=== PATIENT | male | born 1965 | race Caucasian/White ===

== ENCOUNTER 2017-09-06 07:27 | Day surgery (SDC) | payer OTHER ==
[~2017-09-06] VITALS: Ht 172.7 cm; Wt 88.5 kg
[~2017-09-06 07:27] MED LIST: ATARAX,VISTARIL25 MG PO; CITALOPRAM HBR40 MG PO; CLARITIN,ALAVAR10 MG PO; CLOTRIMAZOLE-BE15 GM TP; CYMBALTA30 MG PO; HYDROCODON-ACE1 EAC5 PO; HYDROCODON-ACE1 EAC8 PO; INCRUSE ELLI62.5 MCG IH; LO-DOSE ASPIRIN81 M1 PO; LOPRESSOR100 M1 PO; LOPRESSOR50 MG PO; LORAZEPAM1 MG PO; LORTAB 10-3251 EACH PO; MEN'S MULTI-VI1 EACH PO; METOPROLOL TAR100 MG PO; NEURONTIN600 MG PO; NEURONTIN800 MG PO; TRAMADOL HCL50 MG PO; ULTRAM50 MG PO; VENTOLIN HFA18 GM IH; ZANAFLEX2 M1 PO; ZANTAC150 MG PO; ZESTRIL20 MG PO; ZOLOFT100 MG PO
== END 2017-09-06 09:34 | disposition home or self-care (01) ==
LOC: PAIN 07:27 → SDC 08:00 → PAIN 08:00
DX: M50.13 Cervical disc disorder with radiculopathy, cervicothoracic region (principal); M47.22 Other spondylosis with radiculopathy, cervical region; J44.9 Chronic obstructive pulmonary disease, unspecified; M48.02 Spinal stenosis, cervical region; I10 Essential (primary) hypertension; M79.1 Myalgia; M54.5 Low back pain; G89.29 Other chronic pain; M25.511 Pain in right shoulder; Z79.891 Long term (current) use of opiate analgesic
CPT/HCPCS: J1100; J1885; J2250; J3010

== ENCOUNTER 2017-09-14 14:47 | Emergency (ER) | payer OTHER ==
[~2017-09-14] VITALS: Ht 175.3 cm; Wt 89.3 kg
[2017-09-14] MEDS ORDERED: SKELAXIN800 MG PO (20:22)
[2017-09-14 20:28] VITALS: BP 117/90
== END 2017-09-14 20:29 | disposition home or self-care (01) ==
LOC: EME 14:47
DX: M54.12 Radiculopathy, cervical region (principal); M54.2 Cervicalgia; F17.200 Nicotine dependence, unspecified, uncomplicated; Z88.5 Allergy status to narcotic agent
CPT/HCPCS: 72156; 99281; 99284; J2060; J2270

== ENCOUNTER 2017-09-21 11:17 | Emergency (ER) | payer OTHER ==
[~2017-09-21] VITALS: Ht 172.7 cm; Wt 86.1 kg
[~2017-09-21 11:17] MED LIST changes: +SKELAXIN800 MG PO
[2017-09-21] MEDS ORDERED: MOTRIN600 MG PO (12:53)
[2017-09-21 13:05] VITALS: BP 134/98
== END 2017-09-21 13:06 | disposition home or self-care (01) ==
LOC: EME 11:17
DX: M77.9 Enthesopathy, unspecified (principal); M25.532 Pain in left wrist; M79.642 Pain in left hand; J44.9 Chronic obstructive pulmonary disease, unspecified; I10 Essential (primary) hypertension; F17.200 Nicotine dependence, unspecified, uncomplicated; F32.9 Major depressive disorder, single episode, unspecified; K21.9 Gastro-esophageal reflux disease without esophagitis; F41.9 Anxiety disorder, unspecified; R56.9 Unspecified convulsions; Z79.82 Long term (current) use of aspirin; Z88.5 Allergy status to narcotic agent
CPT/HCPCS: 73110; 73130; 99281; 99284

== ENCOUNTER 2017-09-29 15:52 | Emergency (ER) | payer OTHER ==
[~2017-09-29] VITALS: Ht 172.7 cm; Wt 86.4 kg
[~2017-09-29 15:52] MED LIST changes: +MOTRIN600 MG PO
[2017-09-29 17:43] VITALS: BP 136/95
== END 2017-09-29 17:50 | disposition home or self-care (01) ==
LOC: EME 15:52
DX: M54.12 Radiculopathy, cervical region (principal); J44.9 Chronic obstructive pulmonary disease, unspecified; I10 Essential (primary) hypertension; K21.9 Gastro-esophageal reflux disease without esophagitis; R56.9 Unspecified convulsions; F32.9 Major depressive disorder, single episode, unspecified; F41.0 Panic disorder [episodic paroxysmal anxiety]; F17.200 Nicotine dependence, unspecified, uncomplicated; Z79.82 Long term (current) use of aspirin; Z88.6 Allergy status to analgesic agent
CPT/HCPCS: 99281; 99284; J1100; J1885; J2270; J2405

== ENCOUNTER 2017-10-01 14:33 | Emergency (ER) | payer OTHER ==
[~2017-10-01] VITALS: Ht 170.2 cm; Wt 95.9 kg
[2017-10-01 16:30] VITALS: BP 135/94
== END 2017-10-01 16:31 | disposition home or self-care (01) ==
LOC: EME 14:33
DX: M54.12 Radiculopathy, cervical region (principal); J44.9 Chronic obstructive pulmonary disease, unspecified; I10 Essential (primary) hypertension; F32.9 Major depressive disorder, single episode, unspecified; K21.9 Gastro-esophageal reflux disease without esophagitis; F41.9 Anxiety disorder, unspecified; R56.9 Unspecified convulsions; F17.200 Nicotine dependence, unspecified, uncomplicated; Z79.82 Long term (current) use of aspirin; Z88.5 Allergy status to narcotic agent
CPT/HCPCS: 99281; 99284; J1885; J2270

== ENCOUNTER 2017-10-29 14:11 | Emergency (ER) | payer OTHER ==
[~2017-10-29] VITALS: Ht 175.3 cm; Wt 91.8 kg
[2017-10-29] MEDS ORDERED: MORPHINE SULFAT15 MG PO (14:45)
[2017-10-29 16:28] VITALS: BP 140/67
== END 2017-10-29 16:29 | disposition home or self-care (01) ==
LOC: EME 14:11
DX: M54.9 Dorsalgia, unspecified (principal); M54.2 Cervicalgia; K21.9 Gastro-esophageal reflux disease without esophagitis; I10 Essential (primary) hypertension; J44.9 Chronic obstructive pulmonary disease, unspecified; F32.9 Major depressive disorder, single episode, unspecified; F41.9 Anxiety disorder, unspecified; F17.200 Nicotine dependence, unspecified, uncomplicated; Z87.442 Personal history of urinary calculi; Z79.82 Long term (current) use of aspirin; Z88.5 Allergy status to narcotic agent; Z88.8 Allergy status to other drugs, medicaments and biological substances
CPT/HCPCS: 99281; 99285; J1885; J2270; J7030

== ENCOUNTER 2017-11-03 18:54 | Emergency (ER) | payer OTHER ==
[~2017-11-03] VITALS: Ht 175.3 cm; Wt 86.3 kg
[~2017-11-03 18:54] MED LIST changes: +MORPHINE SULFAT15 MG PO
[2017-11-03 19:03] VITALS: BP 137/87
== END 2017-11-03 20:47 | disposition left against medical advice (07) ==
LOC: EME 18:54
DX: M54.2 Cervicalgia (principal); Z53.21 Procedure and treatment not carried out due to patient leaving prior to being seen by health care provider

== ENCOUNTER 2017-11-07 22:17 | Emergency (ER) | payer OTHER ==
[~2017-11-07] VITALS: Ht 175.3 cm; Wt 86.9 kg
[2017-11-07] MEDS ORDERED: MEDROL DOSEPAK4 MG PO (23:42)
[2017-11-08 00:26] VITALS: BP 120/70
[2017-11-09] MEDS ORDERED: VICOPROFEN1 TABLET PO (16:20)
[2017-11-09] MEDS ORDERED: FLEXERIL5 MG PO (16:21)
[2017-11-09] MEDS ORDERED: VOLTAREN 1% GE100 GM TP (16:22)
[2017-11-09] MEDS ORDERED: BUSPAR15 MG PO (16:22)
[2017-11-09] MEDS ORDERED: OMEPRAZOLE40 M1 PO (16:23)
== END 2017-11-08 00:28 | disposition home or self-care (01) ==
LOC: EME 22:17
DX: M54.9 Dorsalgia, unspecified (principal); M54.2 Cervicalgia; G89.29 Other chronic pain; F17.200 Nicotine dependence, unspecified, uncomplicated; Z88.5 Allergy status to narcotic agent
CPT/HCPCS: 99281; 99283; J1100; J2270

== ENCOUNTER 2017-11-09 12:47 | Observation (INO) | payer OTHER ==
[~2017-11-09] VITALS: Ht 170.2 cm; Wt 89.3 kg
[~2017-11-09 12:47] MED LIST changes: +MEDROL DOSEPAK4 MG PO
[2017-11-09 13:05] LABS: BASOPHIL (%) 0.3 % (0-1); BASOPHIL COUNT 0.1 K/uL (0-0.1); EOSINOPHIL (%) 0.1 % (0-5); HEMATOCRIT 43.3 % (38.0-50.0); HEMOGLOBIN 14.8 G/DL (12.5-16.6); IMMATURE GRANULOCYTE (%) 1.4 % (0.0-0.7); LYMPHOCYTE (%) 9.2 % (15-42); LYMPHOCYTE COUNT 1.8 K/uL (1.0-2.8); MCH 30.6 PG (29.0-34.0); MCHC 34.2 G/DL (30.0-36.0); MCV 89.5 FL (86-99); MONOCYTE (%) 8.7 % (3-12); MONOCYTE COUNT 1.7 K/uL (0-0.8); NEUTROPHIL (%) 80.3 % (45-76); NEUTROPHIL COUNT 15.4 K/uL (1.8-6.4); PLATELET COUNT 255 K/uL (156-360); RBC DIS.WIDTH-CV 13.5 % (11.8-14.6); RBC DIS.WIDTH-SD 44.2 % (39-53); RED BLOOD COUNT 4.84 M/uL (4.00-5.50); WHITE BLOOD COUNT 19.1 K/uL (4.1-10.2)
[2017-11-09 13:19] LABS: ALBUMIN 4.6 g/dL (3.2-4.8); CHLORIDE 110 mEq/L (99-109); SODIUM 144 mEq/L (136-147)
[2017-11-09 13:20] LABS: MAGNESIUM 2.2 mg/dL (1.3-2.7)
[2017-11-09 13:22] LABS: GLUCOSE 117 mg/dL (70-99); TOTAL PROTEIN 7.4 g/dL (6.4-8.3)
[2017-11-09 13:24] LABS: TOTAL BILIRUBIN 0.2 mg/dL (0.0-1.0)
[2017-11-09 13:25] LABS: ALKALINE PHOSPHATASE 73 IU/L (3-129); SERUM ETHYL ALCOHOL 168 mg/dL
[2017-11-09 13:26] LABS: CREATININE 0.8 mg/dL (0.6-1.3); GFR ESTIMATE (CALCULATED) > 59 mL/min/ (58.99-99999)
[2017-11-09 13:27] LABS: AST (GOT) 30 IU/L (2-34); UREA NITROGEN (BUN) 11 mg/dL (9-23)
[2017-11-09 13:28] LABS: TROP-I INTERPRETATION NEGATIVE; TROPONIN-I < 0.01 ng/mL (0.0-0.30)
[2017-11-09 13:29] LABS: ALT (GPT) 41 IU/L (3-49)
[2017-11-09] MEDS ORDERED: VICOPROFEN1 TABLET PO (16:20)
[2017-11-09] MEDS ORDERED: FLEXERIL5 MG PO (16:21)
[2017-11-09] MEDS ORDERED: BUSPAR15 MG PO (16:22)
[2017-11-09] MEDS ORDERED: VOLTAREN 1% GE100 GM TP (16:22)
[2017-11-09] MEDS ORDERED: OMEPRAZOLE40 M1 PO (16:23)
[2017-11-09 19:04] VITALS: BP 155/104
[2017-11-09 20:14] VITALS: BP 150/87
[2017-11-09 23:07] VITALS: BP 157/93
[2017-11-10 04:00] VITALS: BP 158/107
[2017-11-10 06:05] LABS: HEMATOCRIT 40.2 % (38.0-50.0); HEMOGLOBIN 13.6 G/DL (12.5-16.6); MCH 30.7 PG (29.0-34.0); MCHC 33.8 G/DL (30.0-36.0); MCV 90.7 FL (86-99); PLATELET COUNT 194 K/uL (156-360); RBC DIS.WIDTH-CV 13.5 % (11.8-14.6); RBC DIS.WIDTH-SD 45.3 % (39-53); RED BLOOD COUNT 4.43 M/uL (4.00-5.50); WHITE BLOOD COUNT 10.8 K/uL (4.1-10.2)
[2017-11-10 06:23] LABS: CHLORIDE 106 MEQ/L (99-109); CREATININE 0.8 MG/DL (0.6-1.3); GFR ESTIMATE (CALCULATED) > 59 mL/min/ (58.99-99999); GLUCOSE 98 mg/dL (70-99); POTASSIUM 3.8 MEQ/L (3.7-5.4); SODIUM 140 MEQ/L (136-147); UREA NITROGEN (BUN) 15 mg/dL (9-23)
[2017-11-10 07:55] VITALS: BP 148/100
[2017-11-10 11:58] VITALS: BP 117/57
[2017-11-10 15:42] VITALS: BP 148/93
[2017-11-10] MEDS ORDERED: CHLORDIAZEPOXID25 MG PO (15:45)
[2017-11-10] MEDS ORDERED: OXYCODONE HCL10 MG PO (15:45)
[2017-11-10 19:15] VITALS: BP 132/84
[2017-11-10 20:00] VITALS: BP 139/87
== END 2017-11-10 20:03 | disposition home or self-care (01) ==
LOC: EME 12:47 → 5WEST 16:15 → EDOF 16:15 → ENRESERV 16:17 → 5WEST 17:43
PROVIDERS: Emergency Medicine; Internal Medicine
DX: G40.909 Epilepsy, unspecified, not intractable, without status epilepticus (principal); F10.239 Alcohol dependence with withdrawal, unspecified; M50.20 Other cervical disc displacement, unspecified cervical region; F32.9 Major depressive disorder, single episode, unspecified; F41.0 Panic disorder [episodic paroxysmal anxiety]; J43.9 Emphysema, unspecified; I10 Essential (primary) hypertension; K21.9 Gastro-esophageal reflux disease without esophagitis; Z96.643 Presence of artificial hip joint, bilateral; Z98.1 Arthrodesis status; Z87.820 Personal history of traumatic brain injury; F17.210 Nicotine dependence, cigarettes, uncomplicated; Y90.6 Blood alcohol level of 120-199 mg/100 ml; G89.29 Other chronic pain; F11.20 Opioid dependence, uncomplicated; Z82.49 Family history of ischemic heart disease and other diseases of the circulatory system
CPT/HCPCS: 70450; 80048; 80053; 81003; 83735; 84484; 85025; 85027; 93005; G0378; G0480; J1650; J1885; J2060; J2270; J3010; J7030

== ENCOUNTER 2017-12-01 12:24 | Emergency (ER) | payer OTHER ==
[~2017-12-01] VITALS: Ht 170.2 cm; Wt 86.3 kg
[~2017-12-01 12:24] MED LIST changes: +BUSPAR15 MG PO; +CHLORDIAZEPOXID25 MG PO; +FLEXERIL5 MG PO; +OMEPRAZOLE40 M1 PO; +OXYCODONE HCL10 MG PO; +VICOPROFEN1 TABLET PO; +VOLTAREN 1% GE100 GM TP
[2017-12-01 13:20] LABS: BASOPHIL (%) 0.8 % (0-1); BASOPHIL COUNT 0.1 K/uL (0-0.1); EOSINOPHIL (%) 0.7 % (0-5); EOSINOPHIL COUNT 0.1 K/uL (0-0.3); HEMOGLOBIN 16.6 G/DL (12.5-16.6); IMMATURE GRANULOCYTE (%) 2.9 % (0.0-0.7); LYMPHOCYTE (%) 23.9 % (15-42); LYMPHOCYTE COUNT 2.6 K/uL (1.0-2.8); MCH 31.3 PG (29.0-34.0); MCHC 33.9 G/DL (30.0-36.0); MCV 92.3 FL (86-99); MONOCYTE (%) 9.1 % (3-12); NEUTROPHIL (%) 62.6 % (45-76); NEUTROPHIL COUNT 6.7 K/uL (1.8-6.4); PLATELET COUNT 321 K/uL (156-360); RBC DIS.WIDTH-CV 14.6 % (11.8-14.6); RBC DIS.WIDTH-SD 49.7 % (39-53); RED BLOOD COUNT 5.31 M/uL (4.00-5.50); WHITE BLOOD COUNT 10.8 K/uL (4.1-10.2)
[2017-12-01 13:27] LABS: CHLORIDE 106 mEq/L (99-109); SODIUM 138 mEq/L (136-147)
[2017-12-01 13:29] LABS: GLUCOSE 109 mg/dL (70-99)
[2017-12-01 13:32] LABS: SERUM ETHYL ALCOHOL 170 mg/dL
[2017-12-01 13:33] LABS: CREATININE 0.8 mg/dL (0.6-1.3); GFR ESTIMATE (CALCULATED) > 59 mL/min/ (58.99-99999)
[2017-12-01 13:34] LABS: UREA NITROGEN (BUN) 9 mg/dL (9-23)
[2017-12-01 15:15] VITALS: BP 133/92
[2017-12-01] MEDS ORDERED: FLEXERIL10 MG PO (15:35)
[2017-12-01] MEDS ORDERED: PERCOCET 5/31 TABLET PO (16:05)
== END 2017-12-01 16:46 | disposition home or self-care (01) ==
LOC: EME 12:24
PROVIDERS: Emergency Medicine
DX: G89.18 Other acute postprocedural pain (principal); F10.20 Alcohol dependence, uncomplicated; Y90.6 Blood alcohol level of 120-199 mg/100 ml; M79.1 Myalgia; M54.2 Cervicalgia; Z98.1 Arthrodesis status; R56.9 Unspecified convulsions; F17.200 Nicotine dependence, unspecified, uncomplicated; I10 Essential (primary) hypertension; J44.9 Chronic obstructive pulmonary disease, unspecified; F32.9 Major depressive disorder, single episode, unspecified; F41.0 Panic disorder [episodic paroxysmal anxiety]; K21.9 Gastro-esophageal reflux disease without esophagitis; Z88.5 Allergy status to narcotic agent
CPT/HCPCS: 80048; 85025; 99281; 99284; G0480; J2250

== ENCOUNTER 2018-01-05 15:00 | Emergency (ER) | payer OTHER ==
[~2018-01-05] VITALS: Ht 172.7 cm; Wt 83.3 kg
[~2018-01-05 15:00] MED LIST changes: +FLEXERIL10 MG PO; +PERCOCET 5/31 TABLET PO
[2018-01-05 18:41] VITALS: BP 130/95
== END 2018-01-05 18:41 | disposition home or self-care (01) ==
LOC: EME 15:00
DX: S62.521A Displaced fracture of distal phalanx of right thumb, initial encounter for closed fracture (principal); W23.0XXA Caught, crushed, jammed, or pinched between moving objects, initial encounter; F17.200 Nicotine dependence, unspecified, uncomplicated; Z98.1 Arthrodesis status; Z88.5 Allergy status to narcotic agent; Z88.6 Allergy status to analgesic agent
CPT/HCPCS: 73130; 99281; 99284

== ENCOUNTER 2018-02-06 12:57 | Emergency (ER) | payer OTHER ==
[~2018-02-06] VITALS: Ht 170.2 cm; Wt 85.3 kg
[2018-02-06 13:34] LABS: HEMATOCRIT 45.1 % (38.0-50.0); HEMOGLOBIN 16.3 G/DL (12.5-16.6); MCH 32.1 PG (29.0-34.0); MCHC 36.1 G/DL (30.0-36.0); PLATELET COUNT 260 K/uL (156-360); RBC DIS.WIDTH-CV 13.2 % (11.8-14.6); RED BLOOD COUNT 5.07 M/uL (4.00-5.50)
[2018-02-06 13:43] LABS: CHLORIDE 109 mEq/L (99-109); POTASSIUM 3.9 mEq/L (3.7-5.4); SODIUM 143 mEq/L (136-147)
[2018-02-06 13:45] LABS: GLUCOSE 88 mg/dL (70-99)
[2018-02-06 13:49] LABS: CREATININE 0.7 mg/dL (0.6-1.3); GFR ESTIMATE (CALCULATED) > 59 mL/min/ (58.99-99999)
[2018-02-06 13:50] LABS: UREA NITROGEN (BUN) 7 mg/dL (9-23)
[2018-02-06 13:56] LABS: TROP-I INTERPRETATION NEGATIVE; TROPONIN-I < 0.01 ng/mL (0.0-0.30)
[2018-02-06] MEDS ORDERED: PREDNISONE20 MG PO (14:02)
[2018-02-06] MEDS ORDERED: PERCOCET 5/31 TABLET PO (14:05)
[2018-02-06 17:38] VITALS: BP 145/102
== END 2018-02-06 17:40 | disposition home or self-care (01) ==
LOC: EME 12:57
PROVIDERS: Emergency Medicine Emergency Medical Services
DX: M54.12 Radiculopathy, cervical region (principal); M54.14 Radiculopathy, thoracic region; R07.9 Chest pain, unspecified; E86.0 Dehydration; F10.10 Alcohol abuse, uncomplicated; F11.23 Opioid dependence with withdrawal; R00.0 Tachycardia, unspecified; J44.9 Chronic obstructive pulmonary disease, unspecified; K21.9 Gastro-esophageal reflux disease without esophagitis; I10 Essential (primary) hypertension; F32.9 Major depressive disorder, single episode, unspecified; F41.9 Anxiety disorder, unspecified; F17.200 Nicotine dependence, unspecified, uncomplicated; Z98.1 Arthrodesis status; Z87.442 Personal history of urinary calculi; Z88.5 Allergy status to narcotic agent; Z88.8 Allergy status to other drugs, medicaments and biological substances
CPT/HCPCS: 71045; 80048; 84484; 85027; 93005; 99281; 99285; J3010; J7030; J7040; J7512

== ENCOUNTER 2018-02-23 02:57 | Observation (INO) | payer OTHER ==
[~2018-02-23] VITALS: Ht 170.2 cm; Wt 85.4 kg
[~2018-02-23 02:57] MED LIST changes: -CYMBALTA30 MG PO; +CYMBALTA60 MG PO; +PREDNISONE20 MG PO
[2018-02-23 03:30] LABS: HEMATOCRIT 44.7 % (38.0-50.0); HEMOGLOBIN 15.9 G/DL (12.5-16.6); MCH 31.9 PG (29.0-34.0); MCHC 35.6 G/DL (30.0-36.0); MCV 89.6 FL (86-99); RBC DIS.WIDTH-CV 13.5 % (11.8-14.6); RBC DIS.WIDTH-SD 43.8 % (39-53); RED BLOOD COUNT 4.99 M/uL (4.00-5.50); WHITE BLOOD COUNT 7.7 K/uL (4.1-10.2)
[2018-02-23 03:35] LABS: PLATELET COUNT 386 K/uL (156-360)
[2018-02-23 03:43] LABS: ALBUMIN 4.4 g/dL (3.2-4.8); CHLORIDE 104 mEq/L (99-109); SODIUM 142 mEq/L (136-147)
[2018-02-23 03:45] LABS: GLUCOSE 106 mg/dL (70-99); TOTAL PROTEIN 7.2 g/dL (6.4-8.3)
[2018-02-23 03:47] LABS: TOTAL BILIRUBIN 0.3 mg/dL (0.0-1.0)
[2018-02-23 03:48] LABS: ALKALINE PHOSPHATASE 85 IU/L (3-129)
[2018-02-23 03:49] LABS: CREATININE 0.7 mg/dL (0.6-1.3); GFR ESTIMATE (CALCULATED) > 59 mL/min/ (58.99-99999)
[2018-02-23 03:50] LABS: AST (GOT) 25 IU/L (2-34); UREA NITROGEN (BUN) 12 mg/dL (9-23)
[2018-02-23 03:52] LABS: ALT (GPT) 26 IU/L (3-49); LIPASE 94 U/L (1.0-51.0); TROP-I INTERPRETATION NEGATIVE; TROPONIN-I 0.06 ng/mL (0.0-0.30)
[2018-02-23 06:22] LABS: TROP-I INTERPRETATION NEGATIVE; TROPONIN-I 0.08 ng/mL (0.0-0.30)
[2018-02-23] MEDS ORDERED: OXYCODONE HCL10 MG PO (10:12)
[2018-02-23 12:19] LABS: SERUM ETHYL ALCOHOL 191 mg/dL
[2018-02-23 12:22] LABS: ACETAMINOPHEN (TYLENOL) < 10 mcg/mL (10-30); SALICYLATE < 5.0 MG/DL (15-30)
[2018-02-23 12:40] LABS: TROP-I INTERPRETATION NEGATIVE; TROPONIN-I 0.07 ng/mL (0.0-0.30)
[2018-02-23 15:47] VITALS: BP 161/114
[2018-02-23 16:42] VITALS: BP 161/114
[2018-02-23] MEDS ORDERED: PARAFON FORTE500 MG PO (16:47)
[2018-02-23 20:00] VITALS: BP 175/115
[2018-02-23 23:57] VITALS: BP 143/98
[2018-02-24 03:53] VITALS: BP 135/100
[2018-02-24 06:04] LABS: BASOPHIL (%) 1.8 % (0-1); BASOPHIL COUNT 0.1 K/uL (0-0.1); EOSINOPHIL (%) 4.2 % (0-5); EOSINOPHIL COUNT 0.2 K/uL (0-0.3); HEMATOCRIT 38.3 % (38.0-50.0); IMMATURE GRANULOCYTE (%) 0.4 % (0.0-0.7); LYMPHOCYTE (%) 34.5 % (15-42); LYMPHOCYTE COUNT 1.7 K/uL (1.0-2.8); MCH 31.7 PG (29.0-34.0); MCHC 34.7 G/DL (30.0-36.0); MCV 91.4 FL (86-99); MONOCYTE (%) 8.1 % (3-12); MONOCYTE COUNT 0.4 K/uL (0-0.8); NEUTROPHIL COUNT 2.6 K/uL (1.8-6.4); PLATELET COUNT 275 K/uL (156-360); RBC DIS.WIDTH-CV 13.2 % (11.8-14.6); RBC DIS.WIDTH-SD 43.7 % (39-53); RED BLOOD COUNT 4.19 M/uL (4.00-5.50)
[2018-02-24 06:08] LABS: HEMOGLOBIN 13.3 G/DL (12.5-16.6)
[2018-02-24 06:16] LABS: ALBUMIN 3.5 G/DL (3.2-4.8); ALKALINE PHOSPHATASE 72 IU/L (3-129); ALT (GPT) 17 IU/L (3-49); AST (GOT) 23 IU/L (2-34); CHLORIDE 105 MEQ/L (99-109); CREATININE 0.7 MG/DL (0.6-1.3); GFR ESTIMATE (CALCULATED) > 59 mL/min/ (58.99-99999); GLUCOSE 89 mg/dL (70-99); MAGNESIUM 1.7 mg/dl (1.3-2.7); POTASSIUM 4.5 MEQ/L (3.7-5.4); SODIUM 136 MEQ/L (136-147); TOTAL BILIRUBIN 0.6 MG/DL (0.0-1.0); TOTAL PROTEIN 5.4 G/DL (6.4-8.3); UREA NITROGEN (BUN) 11 mg/dL (9-23)
[2018-02-24 07:35] VITALS: BP 139/92
[2018-02-24 12:22] VITALS: BP 154/102
[2018-02-24] MEDS ORDERED: PROAIR RESPICL90 MCG IH (13:40)
[2018-02-24] MEDS ORDERED: NICOTINE PATCH1 EAC1 TD (13:41)
[2018-02-24] MEDS ORDERED: PROTONIX40 MG PO (13:42)
[2018-02-24] MEDS ORDERED: FOLIC ACID1 MG PO (13:43)
[2018-02-24] MEDS ORDERED: VITAMIN B-1100 MG PO (13:44)
[2018-02-24] MEDS ORDERED: ATIVAN0.5 MG PO (13:45)
== END 2018-02-24 14:27 | disposition home or self-care (01) ==
LOC: EME → EDBD 02:57 → EME 02:57 → 4EAST 11:25 → EDOF 11:25 → 4EAST 11:25 → ENRESERV 11:28 → 4EAST 15:32
PROVIDERS: Emergency Medicine; Internal Medicine
DX: F10.239 Alcohol dependence with withdrawal, unspecified (principal); R07.9 Chest pain, unspecified; M54.9 Dorsalgia, unspecified; M54.12 Radiculopathy, cervical region; K85.90 Acute pancreatitis without necrosis or infection, unspecified; E86.0 Dehydration; G40.909 Epilepsy, unspecified, not intractable, without status epilepticus; K29.60 Other gastritis without bleeding; I10 Essential (primary) hypertension; J44.9 Chronic obstructive pulmonary disease, unspecified; G89.29 Other chronic pain; F17.210 Nicotine dependence, cigarettes, uncomplicated; K21.9 Gastro-esophageal reflux disease without esophagitis; F32.9 Major depressive disorder, single episode, unspecified; Z82.49 Family history of ischemic heart disease and other diseases of the circulatory system; Z88.0 Allergy status to penicillin; Z88.5 Allergy status to narcotic agent
CPT/HCPCS: 71046; 71275; 74176; 80053; 80306 90; 83690; 83735; 84484; 85025; 85027; 93005; 94640; 99202; 99281; 99285; C9113; G0378; G0480; J1650; J1885; J2060; J2405; J7030

== ENCOUNTER 2018-04-10 15:06 | Emergency (ER) | payer OTHER ==
[~2018-04-10] VITALS: Ht 172.7 cm; Wt 84.1 kg
[~2018-04-10 15:06] MED LIST changes: +ATIVAN0.5 MG PO; +FOLIC ACID1 MG PO; +NICOTINE PATCH1 EAC1 TD; +PARAFON FORTE500 MG PO; +PROAIR RESPICL90 MCG IH; +PROTONIX40 MG PO; +VITAMIN B-1100 MG PO
[2018-04-10] MEDS ORDERED: MORPHINE SULFAT15 M1 PO (17:01)
[2018-04-10] MEDS ORDERED: OXYCODONE HCL10 MG PO (17:01)
[2018-04-10] MEDS ORDERED: ROBAXIN750 MG PO (17:43)
[2018-04-10 17:53] VITALS: BP 104/79
== END 2018-04-10 18:01 | disposition home or self-care (01) ==
LOC: EME 15:06
DX: M54.5 Low back pain (principal); M25.551 Pain in right hip; M79.1 Myalgia; G89.29 Other chronic pain; Z79.891 Long term (current) use of opiate analgesic; F17.200 Nicotine dependence, unspecified, uncomplicated
CPT/HCPCS: 99281; 99283; J2060

== ENCOUNTER 2018-05-25 10:26 | Inpatient (IN) | payer OTHER ==
[~2018-05-25] VITALS: Ht 171.4 cm; Wt 88.0 kg
[~2018-05-25 10:26] MED LIST changes: +MORPHINE SULFAT15 M1 PO; +ROBAXIN750 MG PO
[2018-05-25 11:21] LABS: INTER. NORMALIZED RATIO 1.2
[2018-05-25 11:23] LABS: PTT 29.3 SEC (25-37)
[2018-05-25 11:26] LABS: ALBUMIN 4.5 g/dL (3.2-4.8); CHLORIDE 104 mEq/L (99-109); SODIUM 143 mEq/L (136-147)
[2018-05-25 11:28] LABS: GLUCOSE 116 mg/dL (70-99); TOTAL PROTEIN 7.5 g/dL (6.4-8.3)
[2018-05-25 11:29] LABS: BASOPHIL (%) 1.4 % (0-1); BASOPHIL COUNT 0.1 K/uL (0-0.1); EOSINOPHIL COUNT 0.2 K/uL (0-0.3); HEMATOCRIT 50.2 % (38.0-50.0); HEMOGLOBIN 17.4 G/DL (12.5-16.6); IMMATURE GRANULOCYTE (%) 0.6 % (0.0-0.7); LYMPHOCYTE (%) 32.7 % (15-42); LYMPHOCYTE COUNT 2.6 K/uL (1.0-2.8); MCH 31.4 PG (29.0-34.0); MCHC 34.7 G/DL (30.0-36.0); MCV 90.5 FL (86-99); MONOCYTE (%) 5.9 % (3-12); MONOCYTE COUNT 0.5 K/uL (0-0.8); NEUTROPHIL (%) 57.4 % (45-76); NEUTROPHIL COUNT 4.5 K/uL (1.8-6.4); PLATELET COUNT 354 K/uL (156-360); RBC DIS.WIDTH-CV 13.9 % (11.8-14.6); RBC DIS.WIDTH-SD 46.4 % (39-53); RED BLOOD COUNT 5.55 M/uL (4.00-5.50); WHITE BLOOD COUNT 7.9 K/uL (4.1-10.2)
[2018-05-25 11:30] LABS: TOTAL BILIRUBIN 0.4 mg/dL (0.0-1.0)
[2018-05-25 11:32] LABS: ALKALINE PHOSPHATASE 81 IU/L (3-129); CREATININE 0.8 mg/dL (0.6-1.3); GFR ESTIMATE (CALCULATED) > 59 mL/min/ (58.99-99999)
[2018-05-25 11:33] LABS: AST (GOT) 44 IU/L (2-34); DIRECT BILIRUBIN 0.2 mg/dL (0.0-0.3); UREA NITROGEN (BUN) 11 mg/dL (9-23)
[2018-05-25 11:35] LABS: ALT (GPT) 42 IU/L (3-49); LIPASE 74 U/L (1.0-51.0)
[2018-05-25 11:38] LABS: TROP-I INTERPRETATION NEGATIVE; TROPONIN-I < 0.01 ng/mL (0.0-0.30)
[2018-05-25] MEDS ORDERED: PROAIR RESPICL90 MCG IH (14:25)
[2018-05-25] MEDS ORDERED: ATIVAN1 MG PO (14:27)
[2018-05-25] MEDS ORDERED: ADVIL200 MG PO (14:30)
[2018-05-25] MEDS ORDERED: PROTONIX40 MG PO (14:30)
[2018-05-25] MEDS ORDERED: ZANTAC150 MG PO (14:32)
[2018-05-25] MEDS ORDERED: FLONASE16 G1 BOTH NARES (14:32)
[2018-05-25 15:38] LABS: MAGNESIUM 2.8 mg/dL (1.3-2.7)
[2018-05-25 16:10] VITALS: BP 158/107
[2018-05-25 18:43] LABS: HEMOGLOBIN 15.7 G/DL (12.5-16.6); MCV 92.2 FL (86-99)
[2018-05-25 19:57] VITALS: BP 164/115
[2018-05-26] VITALS (8 sets, daily range): BP systolic 120–196; BP diastolic 76–128
[2018-05-26 00:29] LABS: HEMATOCRIT 44.7 % (38.0-50.0); HEMOGLOBIN 15.2 G/DL (12.5-16.6); MCV 92.5 FL (86-99)
[2018-05-26 06:04] LABS: ALBUMIN 3.8 G/DL (3.2-4.8); ALKALINE PHOSPHATASE 61 IU/L (3-129); ALT (GPT) 29 IU/L (3-49); AST (GOT) 33 IU/L (2-34); CHLORIDE 108 MEQ/L (99-109); CREATININE 0.8 MG/DL (0.6-1.3); GFR ESTIMATE (CALCULATED) > 59 mL/min/ (58.99-99999); POTASSIUM 3.8 MEQ/L (3.7-5.4); SODIUM 140 MEQ/L (136-147); TOTAL BILIRUBIN 0.7 MG/DL (0.0-1.0); TOTAL PROTEIN 5.8 G/DL (6.4-8.3); UREA NITROGEN (BUN) 11 mg/dL (9-23)
[2018-05-26 06:40] LABS: GLUCOSE 85 mg/dL (70-99)
[2018-05-27 04:02] VITALS: BP 110/60
[2018-05-27 07:52] VITALS: BP 148/96
[2018-05-27] MEDS ORDERED: FOLIC ACID1 MG PO (10:43)
[2018-05-27] MEDS ORDERED: PANTOPRAZOLE SO40 MG PO (10:43)
[2018-05-27] MEDS ORDERED: THIAMINE HCL100 MG PO (10:44)
[2018-05-27 12:18] VITALS: BP 127/87
== END 2018-05-27 13:55 | disposition home or self-care (01) | DRG 378 ==
LOC: EME 10:26 → 4SOUTH 14:26 → EDOF 14:26 → ENRESERV 14:27 → 4SOUTH 15:30 → ENPENDDIS 05-27 10:49 → 4SOUTH 05-27 13:55
PROVIDERS: Emergency Medicine; Hospitalist
PROC: 0DB68ZX Excision of Stomach, Via Natural or Artificial Opening Endoscopic, Diagnostic (ICD-10-PCS; principal; 2018-05-27)
DX: K29.21 Alcoholic gastritis with bleeding (principal); F10.239 Alcohol dependence with withdrawal, unspecified; F10.229 Alcohol dependence with intoxication, unspecified; K29.80 Duodenitis without bleeding; R79.89 Other specified abnormal findings of blood chemistry; I10 Essential (primary) hypertension; K21.9 Gastro-esophageal reflux disease without esophagitis; J44.9 Chronic obstructive pulmonary disease, unspecified; G89.4 Chronic pain syndrome; F41.9 Anxiety disorder, unspecified; F17.200 Nicotine dependence, unspecified, uncomplicated; Z96.643 Presence of artificial hip joint, bilateral; Z98.1 Arthrodesis status; Z91.81 History of falling
CPT/HCPCS: 73502; 76700; 80048; 80053; 80076; 82948; 83605; 83690; 83735; 84484; 85014; 85018; 85025; 85610; 85730; 86850; 86900; 86901; 88305; 88342 TC; 99281; 99285; C9113; G0378; J0360; J0696; J1200; J2060; J2270; J2354; J2405; J2765; J3411; J7030; S0028